=== PATIENT | female | born 1980 | race Caucasian/White ===

== ENCOUNTER 2016-07-27 13:58 | Emergency (ER) | payer MEDICAID ==
[~2016-07-27] VITALS: Ht 170.2 cm; Wt 111.1 kg
[2016-07-27 15:48] VITALS: BP 148/91
== END 2016-07-27 15:48 | disposition home or self-care (01) ==
LOC: ED 13:58
DX: M25.561 Pain in right knee (principal); Z98.51 Tubal ligation status

== ENCOUNTER 2017-08-23 22:17 | Emergency (ER) | payer MEDICAID ==
[~2017-08-23] VITALS: Ht 172.7 cm; Wt 124.3 kg
[2017-08-23 23:19] VITALS: BP 150/99
== END 2017-08-23 23:19 | disposition home or self-care (01) ==
LOC: ED 22:17
DX: H65.91 Unspecified nonsuppurative otitis media, right ear (principal); J06.9 Acute upper respiratory infection, unspecified; R03.0 Elevated blood-pressure reading, without diagnosis of hypertension

== ENCOUNTER 2018-10-25 22:19 | Emergency (ER) | payer MEDICAID ==
[~2018-10-25] VITALS: Ht 165.1 cm; Wt 115.7 kg
[2018-10-26 00:30] VITALS: BP 188/85
== END 2018-10-26 00:30 | disposition home or self-care (01) ==
LOC: ED 22:19
DX: S86.912A Strain of unspecified muscle(s) and tendon(s) at lower leg level, left leg, initial encounter (principal); X58.XXXA Exposure to other specified factors, initial encounter; Y93.89 Activity, other specified; Y92.89 Other specified places as the place of occurrence of the external cause; Y99.8 Other external cause status
CPT/HCPCS: J1885